=== PATIENT | male | born 1980 | race Caucasian/White ===

== ENCOUNTER 2016-08-03 07:10 | Emergency (ER) | payer BC ==
[2016-08-03 07:20] VITALS: BP 126/86
--- NOTE | 2016-08-03 07:32 | UC ---
Throat Pain/Nasal Quan HPI - HPI Summary HPI Summary: 36 yo male with a 2 day hx of feeling feverish and having chills. Mild body aches. Rare cough. Runny nose and sinus congestion as well as post nasal drip. - History of Current Complaint Chief Complaint: UCRespiratory Stated Complaint: COUGH/STUFFY NOSE/BODY ACHES Time Seen by Provider: 08/03/16 07:24 Hx Obtained From: Patient Onset/Duration: Gradual Onset, Lasting Days Severity: Mild Pain Intensity: 2 Pain Scale Used: 0-10 Numeric Cough: Nonproductive Associated Signs & Symptoms: Positive: Sinus Discomfort, Nasal Discharge, Fever - rossy. Negative: Dysphagia, FB Sensation, Drooling, Wheezing, Hoarseness, Vomiting, Rash - Epiglottits Risk Factors Epiglottis Risk Factors: Negative - Allergies/Home Medications Allergies/Adverse Reactions: Allergies Allergy/AdvReac Type Severity Reaction Status Date / Time environmental Allergy Sneezing Uncoded 08/03/16 07:14 Home Medications: Home Medications Ibuprofen [Advil] 800 mg PO DAILY PRN 08/03/16 [History Confirmed 08/03/16] Phenylephrine W/ [id number] [Robitussin Peak Cold Mult] 1 liq PO Q4H PRN 08/03/16 [ History Confirmed 08/03/16] PMH/Surg Hx/FS Hx/Imm Hx Previously Healthy: Yes - Surgical History Surgical History: None - Family History Known Family History: Positive: Hypertension - Social History Alcohol Use: Rare Substance Use Type: None Smoking Status (MU): Former Smoker Amount Used/How Often: 1/2 ppd Length of Time of Smoking/Using Tobacco: 10 years When Did the Patient Quit Smoking/Using Tobacco: 04/09/2016 Household Exposure Type: Cigarettes - Immunization History Most Recent Influenza Vaccination: not this season Most Recent Tetanus Shot: unknown Review of Systems Constitutional: Fever, Chills Skin: Negative Eyes: Negative ENT: Nasal Discharge Respiratory: Cough Cardiovascular: Negative Gastrointestinal: Negative Genitourinary: Negative Motor: Negative Neurovascular: Negative Musculoskeletal: Myalgia Neurological: Negative Psychological: Negative All Other Systems Reviewed And Are Negative: Yes Physical Exam Triage Information Reviewed: Yes Appearance: Well-Appearing, No Pain Distress, Well-Nourished Vital Signs: Initial Vital Signs Temp 99.1 F 08/03/16 07:16 Pulse 85 08/03/16 07:16 Resp 16 08/03/16 07:16 BP 126/86 08/03/16 07:16 Pulse Ox 96 08/03/16 07:16 Vital Signs Reviewed: Yes Eyes: Positive: Conjunctiva Clear ENT: Positive: Hearing grossly normal, Pharynx normal, Nasal congestion, TMs normal, Other: - no sinus tenderness. Negative: Nasal drainage, TM bulging, TM dull, TM red, Tonsillar swelling, Tonsillar exudate, Trismus, Muffled/hoarse voice Neck: Positive: Supple, Nontender Respiratory: Positive: Lungs clear, Normal breath sounds, No respiratory distress, No accessory muscle use Cardiovascular: Positive: RRR, No Murmur Musculoskeletal: Positive: ROM Intact, No Edema Neurological: Positive: Alert Psychological Exam: Normal Skin Exam: Normal Throat Pain/Nasal Course/Dx - Differential Dx/Diagnosis Provider Diagnoses: viral URI Discharge - Discharge Plan Condition: Stable Disposition: HOME Prescriptions: Fluticasone NASAL SPRAY 50MCG* [Flonase NASAL SPRAY 50MCG*] 2 spray BOTH NARES DAILY #1 btl Patient Education Materials: Upper Respiratory Infection (ED) Referrals: Vonnie Lewis PA [Primary Care Provider] - If Needed Additional Instructions: warm facial compresses you can continue saline nasal spray twice daily I suggest AFRIN nasal spray....2 sprays each nostril 3x day for 3 days only recheck for new or worsening symptoms
== END 2016-08-03 07:42 | disposition home or self-care (01) ==
LOC: UCCORT 07:10
DX: J06.9 Acute upper respiratory infection, unspecified (principal); Z87.891 Personal history of nicotine dependence
CPT/HCPCS: 99212; G0463